=== PATIENT | male | born 1960 | race Caucasian/White ===

== ENCOUNTER 2016-12-10 07:14 | Day surgery (SDC) | payer BC ==
[~2016-12-10] VITALS: Ht 182.9 cm; Wt 105.0 kg
[~2016-12-10 07:14] MED LIST: ASPI1TAB69 PO; EPIP0.3I IM; FLUT50SP EACH NARE; HYDR-3535 PO; IBUP-232 PO; LISI40TA PO; LOVA40TA PO; MOBI15TA PO; VARE1PAK3 PO
[2016-12-10 07:26] VITALS: BP 130/87; PULSE 83; RESP 20; TEMP 98.5; O2SAT 95
[2016-12-10] MEDS ORDERED: SODIUM CHLORIDE 0.9% 1000 ML IV SCH (07:45)
[2016-12-10] MEDS ORDERED: VANCOMYCIN HCL 1000 MG ON-CALL/NS 250 ML IV SCH ×2 (07:45)
[2016-12-10] MEDS ORDERED: ceFAZolin 2 GM PREMIX 50 ML - gastrostomy and jejunostomy initial insertion IV SCH (07:45)
[2016-12-10] MEDS ORDERED: LISI40TA PO (08:22)
[2016-12-10] MEDS ORDERED: FLUT1SPR16 (08:22)
[2016-12-10] MEDS ORDERED: EPIP0.3I SQ (08:22)
[2016-12-10] MEDS ORDERED: PERC10TA27 PO (08:22)
[2016-12-10] MEDS ORDERED: MS C15TA2 PO (08:22)
[2016-12-10 08:32] LABS: APTT (PATIENT) 30.9 SEC (24.3-30.1); INTERNATIONAL NORMALIZED RATIO 0.9 RATIO; PROTHROMBIN TIME - PATIENT 10.3 SEC (9.8-11.6)
[2016-12-10] MEDS ORDERED: LORazepam 2 MG/ML VIAL ONE (09:06)
[2016-12-10] MEDS ORDERED: GLUCAGON 1 MG/ML VIAL ONE (09:06)
[2016-12-10] MEDS ORDERED: fentaNYL CITRATE 250 MCG/5 ML AMP ONE (09:06)
[2016-12-10] MEDS ORDERED: MIDAZOLAM HCL 5 MG/5 ML VIAL ONE (09:06)
[2016-12-10] MEDS ORDERED: IOHEXOL 350 MG/ML 50 ML BTL (for RAD DIAG) G-TUBE ONE (09:50)
[2016-12-10 10:10] VITALS: BP_SYST 103; BP_SYST 89; BP_DIAS 53; BP_DIAS 65; PULSE 65; RESP 18; TEMP 97.6; O2SAT 91
[2016-12-10 10:25] VITALS: BP 89/53; PULSE 59; RESP 16; O2SAT 94
--- NOTE | 2016-12-10 10:41 | PD.RAD ---
Post Procedure Progress Note Pre Procedure Diagnosis: (1) Dysphagia Post Procedure Diagnosis: (1) Dysphagia Procedure Date: Dec 10, 2016 Supervising Radiologist: Amado Frazier Proceduralist/Assist: Nancy Gudino, RT(R) Estimated blood loss: <10 ml Plan of Activity Patient to Unit: ROPU Patient Condition: Good Additional Comments: Placed 18F G tube. See PACS Report for procedural detail/treatment Amado Frazier MD Dec 10, 2016 10:41
[2016-12-10 10:45] VITALS: BP 91/45; PULSE 57; RESP 16; O2SAT 93
--- NOTE | 2016-12-10 10:46 | RADRPT ---
EXAM DATE/TIME: 12/10/2016 09:37 [facility] COMPARISON: No previous studies available for comparison. INDICATIONS : Patient with tongue cancer and dysphasia in need of G-tube placement. MEDICAL HISTORY : Squamous cell carcinoma of the base of the tongue 09/2016 Chronic lower back pain Anxiety 2015 Arthritis 2010 SURGICAL HISTORY : Flexible Laryngoscopy Needle biopsy of R level [address] ENCOUNTER: Initial ACUITY: 3 months PAIN SCORE: 8/10 LOCATION: back of tongue FLUORO TIME: 1.9 minutes IMAGE SERIES: 0 SEDATION TIME: 30 minutes CONTRAST: 10 cc Omnipaque (iohexol) 350 MEDICATION(S): 1.) 3 mg midazolam (Versed) IV 2.) 200 mcg Fentanyl (Sublimaze) IV 3.) 1 mg glucagon (Gluca-Gen) IV DEVICE(S): 1.) 18 Fr gastrostomy tube PROCEDURE : 1. Limited abdominal ultrasound. 2. Fluoroscopically guided gastrostomy tube placement. 3. Conscious sedation with continuous EKG and oximetry monitoring. The risks, benefits and alternatives to the procedure were explained and verbal and written consent w as obtained. The site was prepped in sterile fashion. Full sterile technique was used, including ca p, mask, sterile gloves and gown and a large sterile sheet. Hand hygiene and 2% chlorhexidine and/or betadine/alcohol prep was utilized per protocol for cutaneous antisepsis. The skin and subcutaneous tissues were infiltrated with local anesthetic solution. Ultrasound was used to darren the position of the liver. The stomach was insufflated with room air. Th ree percutaneous fasteners were placed to secure the anterior gastric wall. A small incision was made between the fasteners. The stomach was accessed with an 18 gauge needle. A n 0.035 wire was advanced into the small bowel. The tract was dilated. The gastrostomy tube was int roduced through a peel-away sheath. The position was confirmed with an injection of contrast. Conscious sedation was performed with the prescribed dosages and duration as above in the presence of an independent trained radiology nurse to assist in the monitoring of the patient. EKG and oximetry remained stable throughout the procedure. The patient tolerated the procedure well and there were n o complications. The patient was sent to post anesthesia recovery in stable condition. CONCLUSION: Uncomplicated gastrostomy tube placement as above. Amado Frazier MD on December 10, 2016 at 10:44 Board Certified Radiologist. This report was verified electronically.
[2016-12-10 11:15] VITALS: BP 90/60; PULSE 65; RESP 16; O2SAT 94
== END 2016-12-10 12:15 | disposition home or self-care (01) ==
LOC: HROP 07:14 → HRIP 07:15 → HROP 12:15
PROVIDERS: ATTEND Specialist
DX: C01 Malignant neoplasm of base of tongue (principal); G89.29 Other chronic pain; M54.5 Low back pain; F41.9 Anxiety disorder, unspecified; M19.90 Unspecified osteoarthritis, unspecified site
CPT/HCPCS: 49440; 85610; 85730; 99152; 99153; C1769; C1887; J1610; J2060; J2250; J3010; J3370; J7030; J7050; Q9967

== ENCOUNTER 2016-12-15 10:16 | Day surgery (SDC) | payer BC ==
[~2016-12-15 10:16] MED LIST changes: -ASPI1TAB69 PO; +EPIP0.3I SQ; +FLUT1SPR16; -HYDR-3535 PO; -IBUP-232 PO; -LOVA40TA PO; -MOBI15TA PO; +MS C15TA2 PO; +PERC10TA27 PO; -VARE1PAK3 PO
--- NOTE | 2016-12-15 16:13 | RADRPT ---
EXAM DATE/TIME: 12/15/2016 00:00 [facility] COMPARISON : No previous studies available for comparison. INDICATIONS : EVALUATE G TUBE SITE OBJECTIVE: Temperature: 98.2 Heart Rate: 84 Blood Pressure: 148/94 Respiratory: 19 Oximetry: 98 History: Postop day #4 status post gastrostomy catheter placement. Patient presents with complaints of pericat heter tenderness. Catheter site appears unremarkable the. There is no significant skin erythema or fl uctuance. Patient has mild tenderness along the cephalad aspect of the gastrostomy site. ASSESSMENT: Patient was reassured regarding expected postoperative tenderness and encouraged to followup with our office if there are worsening symptoms. TIME SPENT: Approximately 15 minutes examining and directly discussing findings and management plan with the carine ent. Amado Frazier MD on December 15, 2016 at 16:04 Board Certified Radiologist. This report was verified electronically.
== END 2016-12-15 11:03 | disposition home or self-care (01) ==
LOC: HROP 10:16 → HRIP 10:17 → HROP 11:03
PROVIDERS: ATTEND Radiology Body Imaging
DX: K94.29 Other complications of gastrostomy (principal)
CPT/HCPCS: 99213; G0463

== ENCOUNTER 2017-05-02 11:19 | Day surgery (SDC) | payer BC ==
[~2017-05-02] VITALS: Ht 185.4 cm; Wt 75.0 kg
[2017-05-02 11:39] VITALS: BP 128/71; PULSE 88; RESP 20; TEMP 98.4; O2SAT 97
[2017-05-02] MEDS ORDERED: DIFL100T PO (11:41)
[2017-05-02] MEDS ORDERED: PRED20 PO (11:41)
[2017-05-02] MEDS ORDERED: OXYC-426 PO (11:41)
[2017-05-02] MEDS ORDERED: VARE1 PO (11:41)
[2017-05-02] MEDS ORDERED: SODIUM CHLORIDE 0.9% 1000 ML IV SCH (12:00)
[2017-05-02] MEDS ORDERED: IOHEXOL 350 MG/ML 50 ML BTL (for RAD DIAG) G-TUBE ONE (12:23)
[2017-05-02 12:35] VITALS: BP 105/65; PULSE 70; RESP 18; TEMP 98.5; O2SAT 97
--- NOTE | 2017-05-02 12:39 | PD.RAD ---
Post Procedure Progress Note Pre Procedure Diagnosis: (1) Feeding tube dysfunction (2) Dysphagia Post Procedure Diagnosis: (1) Feeding tube dysfunction Procedure Date: May 02, 2017 Supervising Radiologist: Joselito Guerrier JR Proceduralist/Assist: Sanaz Ocasio RT(R)(), Mally Lam RT(R)() Anesthesia: Other Plan of Activity Patient to Unit: ROPU Patient Condition: Good See PACS Report for procedural detail/treatment Feeding Tube Gastrostomy Replacement Polish: 20 Findings: Replaced gupta catheter in the tract with a new G tube. Jr. Fareed,Joselito Gong MD May 02, 2017 12:39
--- NOTE | 2017-05-02 13:04 | RADRPT ---
EXAM DATE/TIME: 05/02/2017 12:20 [facility] COMPARISON: No previous studies available for comparison. INDICATIONS : Patient with history of tongue cancer in need of gastrostomy tube replacement. MEDICAL HISTORY : Chronic lower back pain Difficulty with erections No Previous Radiation Therapy Personal history of daily alcohol consumption Personal history of tobaccoism Squamous cell carcinoma of the base of the tongue (Clinical stage T4 N2 M0.) in 2017 Anxiety in 2016 Arthritis in 2010 SURGICAL HISTORY : Flexible Laryngoscopy Needle biopsy of R Level [address] PEG tube placement in 2017 ENCOUNTER: Subsequent ACUITY: 7 - 11 months PAIN SCORE: 0/10 FLUORO TIME: 0.2 minutes IMAGE SERIES: 2 CONTRAST: 10 cc Omnipaque (iohexol) 350 DEVICE(S): 1.) 18 Israeli gastrostomy tube PROCEDURE : 1. Fluoroscopically guided gastrostomy tube replacement. The risks, benefits and alternatives to the procedure were explained and verbal and written consent w as obtained. The site was prepped in sterile fashion. Full sterile technique was used, including ca p, mask, sterile gloves and gown and a large sterile sheet. Hand hygiene and 2% chlorhexidine and/or betadine/alcohol prep was utilized per protocol for cutaneous antisepsis. The existing Cutler tube was removed. A new 18 Israeli gastrostomy tube was passed down the tract. The balloon was inflated with appropriate volume of saline. Injection of positive contrast demonstrates good position of the gastrostomy tube. The patient tolerated the procedure well and there were no complications. The patient was sent to [facility] anesthesia recovery in stable condition. CONCLUSION: Uncomplicated gastrostomy tube replacement as above. Joselito Guerrier Jr., MD on May 02, 2017 at 13:01 Board Certified Radiologist. This report was verified electronically.
== END 2017-05-02 12:45 | disposition home or self-care (01) ==
LOC: HROP 11:19 → HRIP 11:20 → HROP 12:45
PROVIDERS: ATTEND Internal Medicine Hematology & Oncology
DX: Z43.1 Encounter for attention to gastrostomy (principal); C01 Malignant neoplasm of base of tongue; R13.10 Dysphagia, unspecified
CPT/HCPCS: 49450; Q9967

== ENCOUNTER 2017-06-06 14:44 | Emergency (ER) | payer BC ==
[~2017-06-06] VITALS: Ht 182.9 cm; Wt 68.0 kg
[~2017-06-06 14:44] MED LIST changes: +DIFL100T PO; -FLUT1SPR16; -FLUT50SP EACH NARE; -LISI40TA PO; -MS C15TA2 PO; +OXYC-426 PO; -PERC10TA27 PO; +PRED20 PO; +VARE1 PO
[2017-06-06 15:23] VITALS: BP 124/70; PULSE 70; RESP 16; TEMP 98.4; O2SAT 98
[2017-06-06 16:12] LABS: BASOPHIL % 0.2 % (0.0-2.0); HEMATOCRIT 41.5 % (39.0-51.0); HEMO FLAGS DIFF FINAL; LYMPH % 5.9 % (9.0-44.0); LYMPHOCYTE # 0.5 TH/MM3 (1.0-4.8); MEAN CELL VOLUME 98.8 FL (80.0-100.0); MEAN CORPUSCULAR HEMOGLOBIN 33.4 PG (27.0-34.0); MEAN CORPUSCULAR HGB CONC 33.8 % (32.0-36.0); MONO % 3.2 % (0.0-8.0); NEUT % 90.7 % (16.0-70.0); PLATELET COUNT 197 TH/MM3 (150-450); WHITE BLOOD COUNT 8.8 TH/MM3 (4.0-11.0)
[2017-06-06 16:30] LABS: ANION GAP 5 MEQ/L (5-15); BICARBONATE 30.1 MEQ/L (21.0-32.0); BLOOD UREA NITROGEN 35 MG/DL (7-18); CHLORIDE 99 MEQ/L (98-107); GLOMERULAR FILTRATION RATE 78 ML/MIN (>89); POTASSIUM 3.8 MEQ/L (3.5-5.1); SODIUM (NA) 134 MEQ/L (136-145)
[2017-06-06 16:31] LABS: ALT (GPT) 41 U/L (12-78); AST (GOT) 18 U/L (15-37)
[2017-06-06 16:33] LABS: ALKALINE PHOSPHATASE 63 U/L (45-117); TOTAL BILIRUBIN ADULT 0.3 MG/DL (0.2-1.0)
--- NOTE | 2017-06-06 17:44 | PD ---
HPI Chief Complaint: Psychiatric Symptoms Time Seen by Provider: 17:35 Travel History International Travel<30 days: No Contact w/Intl Traveler<30days: No Traveled to known affect area: No History of Present Illness HPI Patient is a 56-year-old male brought into the emergency Department under Mendez act. Patient was receiving IV hydration today when he reported to the oncology office that he was running out of his pain medication because he had been taking more than normal due to the increasing pain in his tongue that is secondary to tongue cancer. He then stated that he would go bite on the street or kill himself if he didn't get more pain medication. Patient admits that he made the statement but he reports not wanting to harm himself. He reports being happily and has grandchildren. He does have a history of tongue cancer and has received chemotherapy and radiation. The pain has increased recently and he was at [facility] in [place] for another biopsy. He reports the pain is a 7 out of 10 and states aching. It is normally alleviated with oxycodone as well as magic mouthwash. He denies any hallucinations, suicidal ideations, homicidal ideations, depression. PFSH Past Medical History Cancer: Yes (Tongue) Cardiovascular Problems: No Diabetes: No Endocrine: No Genitourinary: No Hepatitis: Yes (Hep A) Hiatal Hernia: No Immune Disorder: No Musculoskeletal: No Neurologic: No Psychiatric: Yes (Anxiety) Reproductive: No Respiratory: Yes Immunizations Current: No Thyroid Disease: No Past Surgical History Abdominal Surgery: No AICD: No Cardiac Surgery: No Ear Surgery: No Endocrine Surgery: No Eye Surgery: No Genitourinary Surgery: No Gynecologic Surgery: No Joint Replacement: No Oral Surgery: Yes Pacemaker: No Thoracic Surgery: No Social History Tobacco Use: Yes Substance Use: No Allergies-Medications (Allergen,Severity, Reaction): Coded Allergies: penicillin G (Unverified Allergy, Intermediate, Rash, 06/06/17) Reported Meds & Prescriptions Reported Meds & Active Scripts Active Reported Diflucan (Fluconazole) 100 Mg Tab 100 Mg PO DAILY Chantix (Varenicline) 1 Mg Tab 1 Mg PO BIDPC Prednisone 20 Mg Tab 20 Mg PO DIRECTED 40 MG twice a day x 3 days, then 20 MG daily x 3 days, then 10 MG daily x 3 days Oxycodone ER (Oxycodone HCl) 30 Mg Tab 30 Mg PO Q8HR Epipen 2-Juan Miguel Inj (Epinephrine) 0.3 Mg/0.3 Ml Pfpen 0.3 Mg SQ ONCE PRN Epipen 2-Juan Miguel Inj (Epinephrine) 0.3 Mg/0.3 Ml Pfpen 0.3 Mg IM ONCE PRN Review of Systems Except as stated in HPI: all other systems reviewed are Neg Musculoskeletal: Positive: Pain Psychiatric: No: Depression, Suicidal Ideations, Substance Abuse Physical Exam Narrative GENERAL: Well-developed, well-nourished, alert male. Resting comfortably in no acute distress. SKIN: Warm and dry. HEAD: Atraumatic. Normocephalic. EYES: Pupils equal and round. No scleral icterus. No injection or drainage. ENT: No nasal bleeding or discharge. Mucous membranes pink and moist. NECK: Trachea midline. No JVD. CARDIOVASCULAR: Regular rate and rhythm. RESPIRATORY: No accessory muscle use. Clear to auscultation. Breath sounds equal bilaterally. GASTROINTESTINAL: Abdomen soft, non-tender, nondistended. Hepatic and splenic margins not palpable. MUSCULOSKELETAL: Extremities without clubbing, cyanosis, or edema. No obvious deformities. NEUROLOGICAL: Awake and alert. No obvious cranial nerve deficits. Motor grossly within normal limits. Five out of 5 muscle strength in the arms and legs. Normal speech. PSYCHIATRIC: Appropriate mood and affect; insight and judgment normal. Data Data Last Documented VS Vital Signs Date Time Temp Pulse Resp B/P (MAP) Pulse Ox O2 Delivery O2 Flow Rate FiO2 06/06/17 15:23 98.4 70 16 124/70 (88) 98 Orders Orders Complete Blood Count With Diff (06/06/17 15:27) Comprehensive Metabolic Panel (06/06/17 15:27) Psych Screen (06/06/17 15:27) Drug Screen, Random Urine (06/06/17 15:27) Bjpd-Urjv-Ekuf Liq (Magic Mouthwash Adul (06/06/17 17:45) Oxycodone-Acetamin 7.5-325 Mg (Percocet (06/06/17 17:45) Labs Laboratory Tests Test 06/06/17 15:42 White Blood Count 8.8 TH/MM3 Red Blood Count 4.20 MIL/MM3 Hemoglobin 14.0 GM/DL Hematocrit 41.5 % Mean Corpuscular Volume 98.8 FL Mean Corpuscular Hemoglobin 33.4 PG Mean Corpuscular Hemoglobin Concent 33.8 % Red Cell Distribution Width 14.0 % Platelet Count 197 TH/MM3 Mean Platelet Volume 7.2 FL Neutrophils (%) (Auto) 90.7 % Lymphocytes (%) (Auto) 5.9 % Monocytes (%) (Auto) 3.2 % Eosinophils (%) (Auto) 0.0 % Basophils (%) (Auto) 0.2 % Neutrophils # (Auto) 8.0 TH/MM3 Lymphocytes # (Auto) 0.5 TH/MM3 Monocytes # (Auto) 0.3 TH/MM3 Eosinophils # (Auto) 0.0 TH/MM3 Basophils # (Auto) 0.0 TH/MM3 CBC Comment DIFF FINAL Differential Comment Blood Urea Nitrogen 35 MG/DL Creatinine 1.00 MG/DL Random Glucose 164 MG/DL Total Protein 7.5 GM/DL Albumin 3.7 GM/DL Calcium Level 9.4 MG/DL Alkaline Phosphatase 63 U/L Aspartate Amino Transf (AST/SGOT) 18 U/L Alanine Aminotransferase (ALT/SGPT) 41 U/L Total Bilirubin 0.3 MG/DL Sodium Level 134 MEQ/L Potassium Level 3.8 MEQ/L Chloride Level 99 MEQ/L Carbon Dioxide Level 30.1 MEQ/L Anion Gap 5 MEQ/L Estimat Glomerular Filtration Rate 78 ML/MIN MDM Medical Decision Making Medical Screen Exam Complete: Yes Emergency Medical Condition: Yes Medical Record Reviewed: Yes Interpretation(s) Vital Signs Date Time Temp Pulse Resp B/P (MAP) Pulse Ox O2 Delivery O2 Flow Rate FiO2 06/06/17 15:23 98.4 70 16 124/70 (88) 98 Laboratory Tests Test 06/06/17 15:42 White Blood Count 8.8 TH/MM3 Red Blood Count 4.20 MIL/MM3 Hemoglobin 14.0 GM/DL Hematocrit 41.5 % Mean Corpuscular Volume 98.8 FL Mean Corpuscular Hemoglobin 33.4 PG Mean Corpuscular Hemoglobin Concent 33.8 % Red Cell Distribution Width 14.0 % Platelet Count 197 TH/MM3 Mean Platelet Volume 7.2 FL Neutrophils (%) (Auto) 90.7 % Lymphocytes (%) (Auto) 5.9 % Monocytes (%) (Auto) 3.2 % Eosinophils (%) (Auto) 0.0 % Basophils (%) (Auto) 0.2 % Neutrophils # (Auto) 8.0 TH/MM3 Lymphocytes # (Auto) 0.5 TH/MM3 Monocytes # (Auto) 0.3 TH/MM3 Eosinophils # (Auto) 0.0 TH/MM3 Basophils # (Auto) 0.0 TH/MM3 CBC Comment DIFF FINAL Differential Comment Blood Urea Nitrogen 35 MG/DL Creatinine 1.00 MG/DL Random Glucose 164 MG/DL Total Protein 7.5 GM/DL Albumin 3.7 GM/DL Calcium Level 9.4 MG/DL Alkaline Phosphatase 63 U/L Aspartate Amino Transf (AST/SGOT) 18 U/L Alanine Aminotransferase (ALT/SGPT) 41 U/L Total Bilirubin 0.3 MG/DL Sodium Level 134 MEQ/L Potassium Level 3.8 MEQ/L Chloride Level 99 MEQ/L Carbon Dioxide Level 30.1 MEQ/L Anion Gap 5 MEQ/L Estimat Glomerular Filtration Rate 78 ML/MIN Vital Signs Date Time Temp Pulse Resp B/P (MAP) Pulse Ox O2 Delivery O2 Flow Rate FiO2 06/06/17 15:23 98.4 70 16 124/70 (88) 98 Differential Diagnosis Suicidal ideations versus mood disorder versus depression versus acute on chronic pain versus other Narrative Course Patient's 56-year-old male presenting under a Mendez act due to making a suicidal statement while at the oncologist's office. Patient appears well, his vital signs are stable. Medical records reviewed. Labs reviewed, no acute findings identified. Magic mouthwash and Percocet ordered for pain. Mental health screening discussed with the patient. Psychiatric screen ordered. Patient is medically cleared for psychiatric evaluation at this time. Diagnosis Primary Impression: Medical clearance for psychiatric admission Condition: Stable Arabella Ji [facility] Jun 06, 2017 17:44
[2017-06-06] MEDS ORDERED: oxyCODONE/ACETAMINOPHEN 7.5 MG/325 MG TAB PO ONE (17:45)
[2017-06-06] MEDS ORDERED: NYSTAT/DIPHENHY/LIDO MOUTHWASH (Adult) 120ML SWISH-SWAL SCH (17:45)
--- NOTE | 2017-06-06 20:30 | PD ---
History of Present Illness Chief Complaint: Psychiatric Symptoms Time Seen by Provider: 20:00 Travel History International Travel<30 Days: No Contact w/Intl Traveler<30days: No Known affected area: No Legal Status Legal Status: Mendez Act Mendez Act Signed By: Batsheva Parnell History of Present Illness: History of Present Illness HPI Patient is a 56-year-old male with no previous psychiatric history brought into the emergency Department under Mendez act initiated by law enforcement. The report alleges that the patient stated that if he could not get any pain medication that he would either go out on the street and get some or he will get a gun and shoot himself. Patient was receiving IV hydration today when he reported to the oncology office that he was running out of his pain medication because he had been taking more than normal amount due to the increasing pain in his tongue secondary to tongue cancer. The patient did not make any attempt at harming himself. Electronic medical record is reviewed. No previous contact with [facility] psychiatry Department. Toxicology is not available at this time. Patient is seen. Poppy ANTONIO present during part of the interview. Mr. Saenz is alert, oriented, pleasant and cooperative. He is dressed in jeans and a T- shirt with appropriate hygiene and grooming. Speech is clear, logical. There is no clinical evidence of any psychosis, no ludwin, no hypomania. Mood is euthymic. He continues to deny any suicidal or homicidal ideation, intent or plan. He admits having made the statements leading to the Mendez act but states he made the comments out of frustration and that he did not mean it. He goes on to state that he has been given hope that the pain will decrease as well as that the sore in his throat will heal. He goes on to state that he loves his family including his 7 grandchildren, his 2 sons and his . He also states that he would not do something like that his mother. Remainder of mental status is all within normal limits. PFSH Past Medical History Cancer: Yes (Tongue) Cardiovascular Problems: No Diabetes: No Endocrine: No Genitourinary: No Hepatitis: Yes (Hep A) Hiatal Hernia: No Immune Disorder: No Musculoskeletal: No Neurologic: No Psychiatric: Yes (Anxiety) Reproductive: No Respiratory: Yes Immunizations Current: No Thyroid Disease: No Past Surgical History Abdominal Surgery: No AICD: No Cardiac Surgery: No Ear Surgery: No Endocrine Surgery: No Eye Surgery: No Genitourinary Surgery: No Gynecologic Surgery: No Joint Replacement: No Oral Surgery: Yes Pacemaker: No Thoracic Surgery: No Psychiatric History Psychiatric History Hx Psychiatric Treatment: None reported. No history of previous suicide attempt. History of Inpatient Treatment: No Guns or firearms in home: Yes (has hunting [employer] Social History for 10 years. Lives with his . Has 2 adult sons and 7 grandchildren. He has worked at a [employer] for the past 23 years. Currently not working. Hx Alcohol Use: No Hx Tobacco Use: Yes Hx Substance Use: No Hx of Substance Use Treatment: No Family Psychiatric History Negative Allergies-Medications (Allergen,Severity, Reaction): Coded Allergies: penicillin G (Unverified Allergy, Intermediate, Rash, 06/06/17) Reported Meds & Prescriptions Reported Meds & Active Scripts Active Reported Diflucan (Fluconazole) 100 Mg Tab 100 Mg PO DAILY Chantix (Varenicline) 1 Mg Tab 1 Mg PO BIDPC Prednisone 20 Mg Tab 20 Mg PO DIRECTED 40 MG twice a day x 3 days, then 20 MG daily x 3 days, then 10 MG daily x 3 days Oxycodone ER (Oxycodone HCl) 30 Mg Tab 30 Mg PO Q8HR Epipen 2-Juan Miguel Inj (Epinephrine) 0.3 Mg/0.3 Ml Pfpen 0.3 Mg SQ ONCE PRN Epipen 2-Juan Miguel Inj (Epinephrine) 0.3 Mg/0.3 Ml Pfpen 0.3 Mg IM ONCE PRN Mental Status Examination Appearance: Appropriate Consciousness: Alert Orientation: x4 Motor Activity: Normal gait Speech: Unremarkable Language: Adequate Fund of Knowledge: Adequate Attention and Concentration: Adequate Memory: Unremarkable Mood: Appropriate Affect: Appropriate Thought Process & Associations: Intact Thought Content: Appropriate Hallucination Type: None Delusion Type: None Suicidal Ideation: No Suicidal Plan: No Suicidal Intention: No Homicidal Ideation: No Homicidal Plan: No Homicidal Intention: No Insight: Fair MDM Medical Decision Making Medical Record Reviewed: Yes Assessment/Plan 56-year-old male with no previous psychiatric history who while at a doctor's visit stated that if he couldn't get any more pain medication that he would either go out and buy them on the street or kill himself. The patient admits to having made the statement but states that he did not mean to say it and that he was frustrated. He denies any suicidal or homicidal ideation intent or plan. Patient is future oriented and is telling me that at his last doctor's appointment he was given some hope. He has adequate protective factors including his family, his employers were supportive and spiritual beliefs. He contracts for safety. He is cognitively intact. Collateral information has been obtained. There is no evidence of any unstable mental illness as defined under the Mendez act. The Mendez act is lifted. Psychiatrically clear for discharge. Orders Orders Complete Blood Count With Diff (06/06/17 15:27) Comprehensive Metabolic Panel (06/06/17 15:27) Psych Screen (06/06/17 15:27) Drug Screen, Random Urine (06/06/17 15:27) Qyqu-Gxva-Zytz Liq (Magic Mouthwash Adul (06/06/17 17:45) Oxycodone-Acetamin 7.5-325 Mg (Percocet (06/06/17 17:45) Results Vital Signs Date Time Temp Pulse Resp B/P (MAP) Pulse Ox O2 Delivery O2 Flow Rate FiO2 06/06/17 15:23 98.4 70 16 124/70 (88) 98 Laboratory Tests Test 06/06/17 15:42 06/06/17 20:01 White Blood Count 8.8 Red Blood Count 4.20 Hemoglobin 14.0 Hematocrit 41.5 Mean Corpuscular Volume 98.8 Mean Corpuscular Hemoglobin 33.4 Mean Corpuscular Hemoglobin Concent 33.8 Red Cell Distribution Width 14.0 Platelet Count 197 Mean Platelet Volume 7.2 Neutrophils (%) (Auto) 90.7 Lymphocytes (%) (Auto) 5.9 Monocytes (%) (Auto) 3.2 Eosinophils (%) (Auto) 0.0 Basophils (%) (Auto) 0.2 Neutrophils # (Auto) 8.0 Lymphocytes # (Auto) 0.5 Monocytes # (Auto) 0.3 Eosinophils # (Auto) 0.0 Basophils # (Auto) 0.0 CBC Comment DIFF FINAL Differential Comment Blood Urea Nitrogen 35 Creatinine 1.00 Random Glucose 164 Total Protein 7.5 Albumin 3.7 Calcium Level 9.4 Alkaline Phosphatase 63 Aspartate Amino Transf (AST/SGOT) 18 Alanine Aminotransferase (ALT/SGPT) 41 Total Bilirubin 0.3 Sodium Level 134 Potassium Level 3.8 Chloride Level 99 Carbon Dioxide Level 30.1 Anion Gap 5 Estimat Glomerular Filtration Rate 78 Diagnosis Primary Impression: Medical clearance for psychiatric admission Additional Impression: Adjustment disorder Psychiatrically Cleared: Yes Med/ Other Pt Specific Info: No Meds Exist/No RX given Disposition: 01 DISCHARGE HOME Condition: Stable Problem Qualifiers Patito Jason Jun 06, 2017 20:30
--- NOTE | 2017-06-06 21:26 | PD ---
Physical Exam Date Seen by Provider: Jun 06, 2017 Time Seen by Provider: 21:25 Narrative For full history and physical examinations please see previous notes. Data Data Last Documented VS Vital Signs Date Time Temp Pulse Resp B/P (MAP) Pulse Ox O2 Delivery O2 Flow Rate FiO2 06/06/17 15:23 98.4 70 16 124/70 (88) 98 Orders Orders Complete Blood Count With Diff (06/06/17 15:27) Comprehensive Metabolic Panel (06/06/17 15:27) Psych Screen (06/06/17 15:27) Drug Screen, Random Urine (06/06/17 15:27) Fejd-Evyv-Wbko Liq (Magic Mouthwash Adul (06/06/17 17:45) Oxycodone-Acetamin 7.5-325 Mg (Percocet (06/06/17 17:45) Ed Discharge Order (06/06/17 21:24) Labs Laboratory Tests Test 06/06/17 15:42 06/06/17 20:01 White Blood Count 8.8 TH/MM3 Red Blood Count 4.20 MIL/MM3 Hemoglobin 14.0 GM/DL Hematocrit 41.5 % Mean Corpuscular Volume 98.8 FL Mean Corpuscular Hemoglobin 33.4 PG Mean Corpuscular Hemoglobin Concent 33.8 % Red Cell Distribution Width 14.0 % Platelet Count 197 TH/MM3 Mean Platelet Volume 7.2 FL Neutrophils (%) (Auto) 90.7 % Lymphocytes (%) (Auto) 5.9 % Monocytes (%) (Auto) 3.2 % Eosinophils (%) (Auto) 0.0 % Basophils (%) (Auto) 0.2 % Neutrophils # (Auto) 8.0 TH/MM3 Lymphocytes # (Auto) 0.5 TH/MM3 Monocytes # (Auto) 0.3 TH/MM3 Eosinophils # (Auto) 0.0 TH/MM3 Basophils # (Auto) 0.0 TH/MM3 CBC Comment DIFF FINAL Differential Comment Blood Urea Nitrogen 35 MG/DL Creatinine 1.00 MG/DL Random Glucose 164 MG/DL Total Protein 7.5 GM/DL Albumin 3.7 GM/DL Calcium Level 9.4 MG/DL Alkaline Phosphatase 63 U/L Aspartate Amino Transf (AST/SGOT) 18 U/L Alanine Aminotransferase (ALT/SGPT) 41 U/L Total Bilirubin 0.3 MG/DL Sodium Level 134 MEQ/L Potassium Level 3.8 MEQ/L Chloride Level 99 MEQ/L Carbon Dioxide Level 30.1 MEQ/L Anion Gap 5 MEQ/L Estimat Glomerular Filtration Rate 78 ML/MIN Urine Opiates Screen POS Urine Barbiturates Screen POS Urine Amphetamines Screen NEG Urine Benzodiazepines Screen POS Urine Cocaine Screen NEG Urine Cannabinoids Screen POS MDM Medical Record Reviewed: Yes Supervised Visit with RADHA: No Narrative Course I initially saw patient in the ambulance call, he was evaluated and medically cleared. He was then evaluated by the psychiatric nurse practitioner, he was subsequently cleared and Mendez act was lifted. Patient will be discharged home with follow-up with his current providers. It was not felt that he was a harm to himself or anyone else. Patient was encouraged to return to emergency department for any new or worsening symptoms. Diagnosis Primary Impression: Medical clearance for psychiatric admission Referrals: Oncologist Primary Care Physician Patient Instructions: General Instructions Departure Forms: Tests/Procedures Additional Instruction: FOLLOW UP WITH YOUR CURRENT TREATMENT PROVIDERS. Med/Other Pt SpecificInfo: No Change to Meds Disposition: 01 DISCHARGE HOME Condition: Stable Arabella Ji Jun 06, 2017 21:26
== END 2017-06-06 21:49 | disposition home or self-care (01) ==
LOC: NEDAMB 14:44 → NEPJ 21:49
DX: F43.22 Adjustment disorder with anxiety (principal); Z79.899 Other long term (current) drug therapy; Z72.0 Tobacco use; Z88.0 Allergy status to penicillin; Z85.810 Personal history of malignant neoplasm of tongue
CPT/HCPCS: 80053; 80307; 85025; 96360; 99283; J7042

== ENCOUNTER 2017-09-08 15:18 | Emergency (ER) | payer BC ==
[~2017-09-08] VITALS: Ht 182.9 cm; Wt 70.0 kg
[2017-09-08] MEDS ORDERED: IOHEXOL 350 MG/ML 10 ML VIAL (for RAD DIAG) IVCONTRAST ONE (15:19)
[2017-09-08 15:24] VITALS: BP 111/68; PULSE 86; RESP 17; TEMP 98.7; O2SAT 99
[2017-09-08] MEDS ORDERED: SODIUM CHLORIDE 0.9% FLUSH 10 ML FLUSH IV FLUSH PRN (16:15)
[2017-09-08 16:29] VITALS: BP 118/79; PULSE 67; RESP 18; O2SAT 100
[2017-09-08 16:30] VITALS: BP 118/79; PULSE 66; RESP 15; O2SAT 100
[2017-09-08] MEDS ORDERED: HYDR-3583 PO (16:44)
[2017-09-08] MEDS ORDERED: NAUSEA MED (16:44)
[2017-09-08] MEDS ORDERED: FENT75DI T-DERMAL (16:44)
[2017-09-08 17:10] LABS: AUTOMATED NEUTROPHIL # 4.8 TH/MM3 (1.8-7.7); BASOPHIL % 0.7 % (0.0-2.0); EOSINOPHIL # 0.1 TH/MM3 (0-0.4); EOSINOPHIL % 1.5 % (0.0-4.0); HEMATOCRIT 36.9 % (39.0-51.0); HEMOGLOBIN 12.7 GM/DL (13.0-17.0); LYMPH % 12.1 % (9.0-44.0); LYMPHOCYTE # 0.8 TH/MM3 (1.0-4.8); MEAN CELL VOLUME 96.1 FL (80.0-100.0); MEAN CORPUSCULAR HEMOGLOBIN 33.1 PG (27.0-34.0); MEAN CORPUSCULAR HGB CONC 34.4 % (32.0-36.0); MEAN PLATELET VOLUME 7.2 FL (7.0-11.0); MONO % 8.9 % (0.0-8.0); MONOCYTE # 0.6 TH/MM3 (0-0.9); NEUT % 76.8 % (16.0-70.0); PLATELET COUNT 210 TH/MM3 (150-450); RED BLOOD COUNT 3.84 MIL/MM3 (4.50-5.90); RED CELL DISTRIBUTION WIDTH 15.5 % (11.6-17.2); WHITE BLOOD COUNT 6.2 TH/MM3 (4.0-11.0)
[2017-09-08 17:29] LABS: BICARBONATE 30.4 MEQ/L (21.0-32.0); CALCIUM 9.8 MG/DL (8.5-10.1); CREATININE 1.17 MG/DL (0.60-1.30)
--- NOTE | 2017-09-08 17:36 | PD ---
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 He has a history of head and neck cancer and underwent chemotherapy yesterday in [place]. He reports pain started last night. He also feels a ball-like mass in the margin of the gastrostomy insertion site. Pain is worse with palpation. There is mild pain at rest without palpation. PFSH Past Medical History Cancer: Yes (Tongue) Cardiovascular Problems: No Diabetes: No Endocrine: No Genitourinary: No Hepatitis: Yes (Hep A) Hiatal Hernia: No Hypertension: Yes Immune Disorder: No Musculoskeletal: No Neurologic: No Psychiatric: Yes (Anxiety) Reproductive: No Respiratory: Yes Immunizations Current: No Thyroid Disease: No Past Surgical History Abdominal Surgery: Yes ("PEG TUBE") AICD: No Cardiac Surgery: No Ear Surgery: No Endocrine Surgery: No Eye Surgery: No Genitourinary Surgery: No Gynecologic Surgery: No Joint Replacement: No Oral Surgery: Yes Pacemaker: No Thoracic Surgery: No Social History Alcohol Use: No Tobacco Use: Yes (07/12 PPD) Substance Use: No Allergies-Medications (Allergen,Severity, Reaction): Coded Allergies: penicillin G (Unverified Allergy, Intermediate, Rash, 09/08/17) Reported Meds & Prescriptions Reported Meds & Active Scripts Active Reported [Nausea Med] Hydrocodone-Acetaminophen 10-325 mg Tab 1 Tab PO Q4H PRN Fentanyl Patch 72 HR (Fentanyl) 75 Mcg/Hr Patch 75 Mcg T-DERMAL Q72H Remove old patch when new one placed. Epipen 2-Juan Miguel Inj (Epinephrine) 0.3 Mg/0.3 Ml Pfpen 0.3 Mg SQ ONCE PRN Epipen 2-Juan Miguel Inj (Epinephrine) 0.3 Mg/0.3 Ml Pfpen 0.3 Mg IM ONCE PRN Review of Systems Except as stated in HPI: all other systems reviewed are Neg General / Constitutional: No: Fever Physical Exam Narrative GENERAL: 56-year-old male well-nourished well-developed pleasant Vital Signs Date Time Temp Pulse Resp B/P (MAP) Pulse Ox O2 Delivery O2 Flow Rate FiO2 3/1/18 16:29 67 18 118/79 (92) 100 Room Air 09/08/17 15:24 98.7 86 17 111/68 (82) 99 SKIN: Warm and dry. HEAD: Atraumatic. Normocephalic. EYES: Pupils equal and round. No scleral icterus. No injection or drainage. ENT: No nasal bleeding or discharge. Mucous membranes pink and moist. NECK: Trachea midline. No JVD. CARDIOVASCULAR: Regular rate and rhythm. RESPIRATORY: No accessory muscle use. Clear to auscultation. Breath sounds equal bilaterally. GASTROINTESTINAL: Abdomen is soft. At the gastrostomy insertion to the areas about a 1 cm mass tender to palpation minimally mobile. No cellulitis/erythema about the site of insertion. The abdomen is not otherwise tender. MUSCULOSKELETAL: Extremities without clubbing, cyanosis, or edema. No obvious deformities. NEUROLOGICAL: Awake and alert. No obvious cranial nerve deficits. Motor grossly within normal limits. Five out of 5 muscle strength in the arms and legs. Normal speech. PSYCHIATRIC: Appropriate mood and affect; insight and judgment normal. Data Data Last Documented VS Vital Signs Date Time Temp Pulse Resp B/P (MAP) Pulse Ox O2 Delivery O2 Flow Rate FiO2 09/08/17 16:29 67 18 118/79 (92) 100 Room Air 09/08/17 15:24 98.7 Vital signs reviewed Orders Orders Basic Metabolic Panel (Bmp) (09/08/17 16:10) Complete Blood Count With Diff (09/08/17 16:10) Ct Abd/Pel W Iv Contrast(Rout) (09/08/17 16:10) Iv Access Insert/Monitor (09/08/17 16:10) Ecg Monitoring (09/08/17 16:10) Oximetry (09/08/17 16:10) Sodium Chloride 0.9% Flush (Ns Flush) (09/08/17 16:15) Iohexol 350 Inj (Omnipaque 350 Inj) (09/08/17 15:19) Labs Laboratory Tests Test 09/08/17 16:30 White Blood Count 6.2 TH/MM3 Red Blood Count 3.84 MIL/MM3 Hemoglobin 12.7 GM/DL Hematocrit 36.9 % Mean Corpuscular Volume 96.1 FL Mean Corpuscular Hemoglobin 33.1 PG Mean Corpuscular Hemoglobin Concent 34.4 % Red Cell Distribution Width 15.5 % Platelet Count 210 TH/MM3 Mean Platelet Volume 7.2 FL Neutrophils (%) (Auto) 76.8 % Lymphocytes (%) (Auto) 12.1 % Monocytes (%) (Auto) 8.9 % Eosinophils (%) (Auto) 1.5 % Basophils (%) (Auto) 0.7 % Neutrophils # (Auto) 4.8 TH/MM3 Lymphocytes # (Auto) 0.8 TH/MM3 Monocytes # (Auto) 0.6 TH/MM3 Eosinophils # (Auto) 0.1 TH/MM3 Basophils # (Auto) 0.0 TH/MM3 CBC Comment DIFF FINAL Differential Comment Blood Urea Nitrogen 19 MG/DL Creatinine 1.17 MG/DL Random Glucose 74 MG/DL Calcium Level 9.8 MG/DL Sodium Level 141 MEQ/L Potassium Level 4.4 MEQ/L Chloride Level 102 MEQ/L Carbon Dioxide Level 30.4 MEQ/L Anion Gap 9 MEQ/L Estimat Glomerular Filtration Rate 65 ML/MIN MDM Medical Decision Making Medical Screen Exam Complete: Yes Emergency Medical Condition: Yes Medical Record Reviewed: Yes Differential Diagnosis Constipation, Gastritis, Acute Cholecystitis, Biliary Colic, Pancreatitis, SONG , Hepatitis, Bowel Obstruction, Cystitis, Mesenteric Ischemia, AAA, Appendicitis , Renal Stone/Hydronephrosis, GERD, perforated viscous Narrative Course CBC & BMP Diagram 09/08/17 16:30 Calcium Level 9.8 Last Impressions Abdomen/Pelvis CT 09/08/17 1610 Signed Impressions: Service Date/Time: September 17:36 - CONCLUSION: Gastrostomy appearance is unremarkable. No acute CT findings in the abdomen or pelvis. Russ Hernandez MD On exam there is a focus of tenderness with a mobile mass. There is concern for infection. I reviewed the CT myself and I see no significant collection of fluid. We will provide a course of antibiotics. Return precautions discussed Diagnosis Primary Impression: Feeding tube dysfunction Qualified Codes: T85.598A - Other mechanical complication of other gastrointestinal prosthetic devices, implants and grafts, initial encounter Additional Impression: Abdominal wall mass Med/Other Pt SpecificInfo: Prescription(s) given Scripts Sulfamethoxazole-Trimethoprim (Bactrim DS) 800-160 Mg Tab 1 TAB PO BID for Infection, #20 TAB 0 Refills Prov: Eleazar Zamora MD 09/08/17 Disposition: 01 DISCHARGE HOME Condition: Stable Eleazar Zamora MD Sep 08, 2017 17:36
--- NOTE | 2017-09-08 17:50 | RADRPT ---
EXAM DATE/TIME: 09/08/2017 17:36 [place] COMPARISON: CHANGE OF G-TUBE CATHETER, May 02, 2017, 12:20. GASTROSTOMY TUBE [facility] W/US, December 10, 2016, 9:37 . INDICATIONS : Pain swelling around feeding tube area. Tongue Cancer. IV CONTRAST: 91 cc Omnipaque 350 (iohexol) IV ORAL CONTRAST: No oral contrast ingested. RADIATION DOSE: 6.64 CTDIvol (mGy) MEDICAL HISTORY : Hypertension. Hepatitis A. Tongue and espohageal cancer SURGICAL HISTORY : Feeding tube ENCOUNTER: Initial ACUITY: 2 days PAIN SCALE: 6/10 LOCATION: abdomen TECHNIQUE: Volumetric scanning of the abdomen and pelvis was performed. Using automated exposure control and ad justment of the mA and/or kV according to patient size, radiation dose was kept as low as reasonably achievable to obtain optimal diagnostic quality images. DICOM format image data is available electro nically for review and comparison. FINDINGS: LOWER LUNGS: The visualized lower lungs are clear. LIVER: Homogeneous density without lesion. There is no dilation of the biliary tree. No calcified gallston es. SPLEEN: Normal size without lesion. PANCREAS: Within normal limits. KIDNEYS: Normal in size and shape. There is no mass, stone or hydronephrosis. ADRENAL GLANDS: Within normal limits. VASCULAR: Atherosclerotic changes. No evidence of aneurysm. No major vessel occlusion. BOWEL/MESENTERY: Gastrostomy tube in good position. No abnormal dilated bowel loops. No evidence of wall thickening or focal inflammatory changes. ABDOMINAL WALL: Gastrostomy site is unremarkable with no evidence of induration mass or collection RETROPERITONEUM: There is no lymphadenopathy. BLADDER: No wall thickening or mass. REPRODUCTIVE: Within normal limits. INGUINAL: There is no lymphadenopathy or hernia. MUSCULOSKELETAL: Within normal limits for patient age. CONCLUSION: Gastrostomy appearance is unremarkable. No acute CT findings in the abdomen or pelvis. Russ Hernandez MD on September 08, 2017 at 17:43 Board Certified Radiologist. This report was verified electronically.
[2017-09-08] MEDS ORDERED: BACT800T5 PO (18:15)
== END 2017-09-08 19:02 | disposition home or self-care (01) ==
LOC: NEPE 15:18
DX: T85.598A Other mechanical complication of other gastrointestinal prosthetic devices, implants and grafts, initial encounter (principal); C02.9 Malignant neoplasm of tongue, unspecified; F17.200 Nicotine dependence, unspecified, uncomplicated; R19.00 Intra-abdominal and pelvic swelling, mass and lump, unspecified site
CPT/HCPCS: 74177; 80048; 85025; 99284; Q9967

== ENCOUNTER 2017-09-23 14:35 | Emergency (ER) | payer BC ==
[~2017-09-23] VITALS: Ht 182.9 cm; Wt 68.0 kg
[~2017-09-23 14:35] MED LIST changes: +BACT800T5 PO; -DIFL100T PO; +FENT75DI T-DERMAL; +HYDR-3583 PO; +NAUSEA MED; -OXYC-426 PO; -PRED20 PO; -VARE1 PO
[2017-09-23 15:20] VITALS: BP 127/65; PULSE 81; RESP 18; TEMP 98.2; O2SAT 98
--- NOTE | 2017-09-23 18:03 | PD ---
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 He has a G-tube placed 5 months ago. He says he takes 90% of his calories through it. He has history of head and neck cancer. it came out at 1330 today. Symptom severity is mild. No alleviating factors. No fever. Duration is 4.5 hours. No exacerbating factors. PFSH Past Medical History Cancer: Yes (Tongue) Cardiovascular Problems: No Chemotherapy: Yes Diabetes: No Endocrine: No Genitourinary: No Hepatitis: Yes (Hep A) Hiatal Hernia: No Hypertension: Yes Immune Disorder: No Musculoskeletal: No Neurologic: No Psychiatric: Yes (Anxiety) Reproductive: No Respiratory: Yes Immunizations Current: No Thyroid Disease: No Past Surgical History Abdominal Surgery: Yes ("PEG TUBE") AICD: No Cardiac Surgery: No Ear Surgery: No Endocrine Surgery: No Eye Surgery: No Genitourinary Surgery: No Gynecologic Surgery: No Joint Replacement: No Oral Surgery: Yes Pacemaker: No Thoracic Surgery: No Social History Alcohol Use: No Tobacco Use: Yes (07/12 PPD) Substance Use: No Allergies-Medications (Allergen,Severity, Reaction): Coded Allergies: penicillin G (Unverified Allergy, Intermediate, Rash, 09/08/17) Reported Meds & Prescriptions Reported Meds & Active Scripts Active Bactrim DS (Sulfamethoxazole-Trimethoprim) 800-160 Mg Tab 1 Tab PO BID Reported [Nausea Med] Hydrocodone-Acetaminophen 10-325 mg Tab 1 Tab PO Q4H PRN Fentanyl Patch 72 HR (Fentanyl) 75 Mcg/Hr Patch 75 Mcg T-DERMAL Q72H Remove old patch when new one placed. Epipen 2-Juan Miguel Inj (Epinephrine) 0.3 Mg/0.3 Ml Pfpen 0.3 Mg SQ ONCE PRN Epipen 2-Juan Miguel Inj (Epinephrine) 0.3 Mg/0.3 Ml Pfpen 0.3 Mg IM ONCE PRN Review of Systems General / Constitutional: No: Fever Eyes: No: Visual changes HENT: No: Headaches Cardiovascular: No: Chest Pain or Discomfort Respiratory: No: Shortness of Breath Gastrointestinal: No: Abdominal Pain Genitourinary: No: Dysuria Musculoskeletal: No: Pain Skin: No Rash Neurologic: No: Weakness Psychiatric: No: Depression Endocrine: No: Polydipsia Hematologic/Lymphatic: No: Easy Bruising Physical Exam Narrative GENERAL: Well-nourished, well-developed patient in no apparent distress. SKIN: Focused skin assessment reveals no rash and nodules. Skin is Warm and dry. HEAD: Atraumatic. Normocephalic. EYES: Pupils equal and round. No scleral icterus. No injection or drainage. ENT: No nasal bleeding or discharge. Mucous membranes pink and moist. NECK: Trachea midline. No JVD. CARDIOVASCULAR: Regular rate and rhythm. No murmur appreciated. RESPIRATORY: No accessory muscle use. Clear to auscultation. Breath sounds equal bilaterally. GASTROINTESTINAL: Abdomen soft, non-tender, nondistended. Hepatic and splenic margins not palpable. There is a G-tube hole but is closing up already MUSCULOSKELETAL: No obvious deformities. No clubbing. No cyanosis. No edema. NEUROLOGICAL: Awake and alert. No obvious cranial nerve deficits. Motor grossly within normal limits. Normal speech. PSYCHIATRIC: Appropriate mood and affect; insight and judgment normal. Data Data Last Documented VS Vital Signs Date Time Temp Pulse Resp B/P (MAP) Pulse Ox O2 Delivery O2 Flow Rate FiO2 09/23/17 15:20 98.2 81 18 127/65 (85) 98 MDM Medical Decision Making Medical Screen Exam Complete: Yes Emergency Medical Condition: Yes Medical Record Reviewed: Yes Differential Diagnosis Feeding tube malfunction, displaced feeding tube, cachexia Narrative Course I have reviewed the patient's electronic medical record. Radiology replace his feeding tube 5 months ago Procedure note: I evaluated the open G-tube hole. It is closing up already. I applied some lubricant and try to dilate with a Q-tip The 18 [place] feeding tube would not pass even with study direct pressure I then decided to place something small and gradually dilate it up. I first placed a 12 [place] Cutler catheter. I let that sit for 20 minutes and then changed out to a 14 [place] Cutler catheter. I let that sit for another 20 minutes and then placed a 16 [place] G-tube. This was tolerated well. We confirmed placement by infusing and pulling back gastric contents. Patient is feeling well and stable for outpatient follow-up with a brand-new G- tube Diagnosis Primary Impression: Feeding tube dysfunction Qualified Codes: T85.598A - Other mechanical complication of other gastrointestinal prosthetic devices, implants and grafts, initial encounter Additional Instructions: The patient was advised to follow up with their physician and return if they worsen. Med/Other Pt SpecificInfo: Other Disposition: 01 DISCHARGE HOME Condition: Stable Warren Colindres MD Sep 23, 2017 18:03
== END 2017-09-23 19:03 | disposition home or self-care (01) ==
LOC: NEPC 14:35
DX: T85.598A Other mechanical complication of other gastrointestinal prosthetic devices, implants and grafts, initial encounter (principal); I10 Essential (primary) hypertension; B15.9 Hepatitis A without hepatic coma; F41.9 Anxiety disorder, unspecified; F17.210 Nicotine dependence, cigarettes, uncomplicated; Z93.1 Gastrostomy status; Z85.810 Personal history of malignant neoplasm of tongue; Z88.0 Allergy status to penicillin; Z79.899 Other long term (current) drug therapy
CPT/HCPCS: 43760; 99284

== ENCOUNTER 2017-12-22 08:18 | Emergency (ER) | payer BC ==
[2017-12-22 08:33] VITALS: BP 116/70; PULSE 78; RESP 18; TEMP 98; O2SAT 98
[2017-12-22] MEDS ORDERED: OXYC30TA G-TUBE (08:47)
[2017-12-22] MEDS ORDERED: [UNRECOGNIZED DRUG - SUPPLY] (09:50)
--- NOTE | 2017-12-22 09:57 | PD ---
HPI . 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 His sister who is a nurse tried to replace it at home but the balloon was corroded. The sister was able to replace it with a Cutler until he can get here to have the gastrostomy tube replaced. He has no other complaints. PFSH Past Medical History Cancer: Yes (Tongue) Cardiovascular Problems: No Chemotherapy: Yes Diabetes: No Diminished Hearing: No Endocrine: No Genitourinary: No Hepatitis: Yes (Hep A) Hiatal Hernia: No Hypertension: Yes Immune Disorder: No Musculoskeletal: No Neurologic: No Psychiatric: Yes (Anxiety) Reproductive: No Respiratory: Yes Immunizations Current: No Thyroid Disease: No Tetanus Vaccination: > 5 Years Influenza Vaccination: Yes Past Surgical History Abdominal Surgery: Yes ("PEG TUBE") AICD: No Cardiac Surgery: No Ear Surgery: No Endocrine Surgery: No Eye Surgery: No Genitourinary Surgery: No Gynecologic Surgery: No Joint Replacement: No Neurologic Surgery: No Oral Surgery: Yes Pacemaker: No Thoracic Surgery: No Other Surgery: No Social History Alcohol Use: No Tobacco Use: Yes (1/2 PPD) Substance Use: No Allergies-Medications (Allergen,Severity, Reaction): Coded Allergies: penicillin G (Verified Allergy, Intermediate, Rash, 12/22/17) Reported Meds & Prescriptions Reported Meds & Active Scripts Active [lesley.feed.tube 16Fr] Ea Reported Oxycodone (Oxycodone HCl) 30 Mg Tab 30 Mg G-TUBE Q6HR Fentanyl Patch 72 HR (Fentanyl) 75 Mcg/Hr Patch 75 Mcg T-DERMAL Q72H Remove old patch when new one placed. Review of Systems Except as stated in HPI: all other systems reviewed are Neg Physical Exam Narrative GENERAL: Awake and alert and in no acute distress. SKIN: Warm and dry. Normal color and turgor. HEAD: Normocephalic/atraumatic. EYES: Pupils are equal. Extraocular movements are intact. NECK: Normal range of motion. Supple. CARDIOVASCULAR: Regular rate and rhythm. RESPIRATORY: Nonlabored respirations. Normal sats. ABDOMEN: Cutler catheter inserted into his gastrostomy. The surrounding skin is not red or hot. There is no purulent drainage. MUSCULOSKELETAL: Atraumatic. Normal muscle tone. NEUROLOGICAL: A and O 3. Nonfocal. PSYCHIATRIC: Appropriate mood and affect. Data Data Last Documented VS Vital Signs Date Time Temp Pulse Resp B/P (MAP) Pulse Ox O2 Delivery O2 Flow Rate FiO2 12/22/17 08:45 86 16 98 Room Air 12/22/17 08:33 98.0 116/70 (85) Orders Orders Ed Discharge Order (12/22/17 09:51) MDM Medical Decision Making Medical Screen Exam Complete: Yes Emergency Medical Condition: Yes Differential Diagnosis Differential diagnosis includes but is not limited to obstruction of the tube, dislodgment of the tube, stenosis of the gastrostomy, wound infection Narrative Course This patient presents because his feeding tube has become dislodged. Procedures Procedure Narrative The Cutler catheter was removed and replaced with a gastrostomy feeding tube. This was done easily and without complication. Diagnosis Primary Impression: Feeding tube dysfunction Qualified Codes: T85.598A - Other mechanical complication of other gastrointestinal prosthetic devices, implants and grafts, initial encounter Patient Instructions: General Instructions Departure Forms: Tests/Procedures Scripts [lesley.feed.tube 16Fr] No Conflict Check EA, #1 Prov: Vianney Davis MD 12/22/17 Disposition: 01 DISCHARGE HOME Condition: Stable Vianney Davis MD Dec 22, 2017 09:57
[2017-12-22 10:00] VITALS: BP 124/77; TEMP 97.8
== END 2017-12-22 10:00 | disposition home or self-care (01) ==
LOC: NEPE 08:18
DX: T85.598A Other mechanical complication of other gastrointestinal prosthetic devices, implants and grafts, initial encounter (principal); I10 Essential (primary) hypertension; F17.210 Nicotine dependence, cigarettes, uncomplicated; Z85.810 Personal history of malignant neoplasm of tongue
CPT/HCPCS: 43760; 99282